=== PATIENT | male | born 1940 | race Caucasian/White ===

== ENCOUNTER → 2017-01-15 | Outpatient (CLI) | payer MEDICARE ==
[~2017-01-15] VITALS: Ht 170.2 cm; Wt 68.2 kg
[~2017-01-15] MED LIST: NONE PER PT
== END | disposition home or self-care (01) ==
LOC: OUT 07:00 → ORIP 08:11 → UNDOADMIN 08:11 → UNDODISIN 09:00 → EDSTATUS 10:30
PROVIDERS: ATTEND Colon & Rectal Surgery
DX: Z02.9 Encounter for administrative examinations, unspecified (principal)